=== PATIENT | male | born 2000 | race Caucasian/White ===

== ENCOUNTER 2024-10-02 15:38 | Outpatient (CLI) | payer OTHER, SELFPAY ==
[2024-10-02 15:59] LABS: Basophils Absolute Auto 0.1 K/mm3 (0.0-0.1); Basophils Percent Auto 1.4 % (0.2-1.2); Eosinophils Absolute Auto 0.4 K/mm3 (0-0.3); Eosinophils Percent Auto 4.5 % (0-4.4); Hematocrit 46.1 % (42.0-52.0); Hemoglobin 15.7 g/dL (14.0-18.0); Immature Granulocyte Absolute 0.03 K/mm3 (0.00-0.031); Immature Granulocyte Percent A 0.4 % (0-0.5); Lymphocytes Absolute Auto 2.17 K/mm3 (0.9-3.2); Lymphocytes Percent Auto 27.2 % (18.3-44.2); Mean Corpuscular HGB Conc 34.1 g/dl (32-36); Mean Corpuscular Hemoglobin 28.7 pg (26-34); Mean Corpuscular Volume 84.3 fl (80-100); Mean Platelet Volume 9.2 fl (7.4-10.4); Monocytes Absolute Auto 0.6 K/mm3 (0.1-0.6); Monocytes Percent Auto 7.1 % (2.6-8.5); Neutrophils Absolute Auto 4.8 K/mm3 (1.3-6.7); Neutrophils Percent Auto 59.4 % (45.5-73.1); Platelet Count Result 233 k/mm3 (150-375); Red Blood Count 5.47 M/mm3 (4.6-6.20); Red Cell Distribution Width 12.6 % (11.5-14.5)
[2024-10-02 16:12] LABS: Alanine Aminotransferase 74 U/L (6-50); Alkaline Phosphatase 120 U/L (38-126); Anion Gap 13 mmol/L (4-12); Aspartate Amino Transferase 43 U/L (17-59); Bilirubin,Total 0.5 mg/dL (0.2-1.3); Blood Urea Nitrogen 14 mg/dL (9-20); Calcium 9.6 mg/dL (8.4-10.2); Carbon Dioxide 23 mmol/L (22-30); Chloride 104 mmol/L (98-107); Estimated Glomerular Filt Rate > 60; Glucose 101 mg/dL (65-110); Sodium 140 mmol/L (137-145)
--- OUTSIDE RECORDS SUMMARY | 2024-10-02 17:04 | XMS_ITS | Clinical Summary ---
Author Organization [facility] [employer] Address [address] [place] [address] Care Team Providers Care Slp Teacher Name Role Phone Cadence Fitzgerald MD Primary Care Provider Source Comments [facility] [employer],non-owned Affiliates and Associated Physician Practices is amultiple site organization consisting of ambulatory clinics and hospital sitesin [place], [place], [place] and [place]. This disclosure is being madepursuant to the Care Everywhere program and may not contain all information available regarding this patient. Last updated 18.[facility] Allergies No known active allergies Medications Be aware that medications may not be up to date on this document. Always verify current medications with the patient. No known medications Family History Relation Name Status Comments Father Alive Mother Alive Social History Tobacco Use Types Packs/Day Years Used Date Smoking Tobacco: Never Smokeless Tobacco: Never Sex and Gender Information Value Date Recorded Sex Assigned at Not on file Gender Identity Not on file Sexual Orientation Not on file Last Filed Vital Signs Vital Sign Reading Time Taken Comments Blood Pressure 136/88 07/11/2017 11:32 AM FUNERAL CAR CHAUFFEUR Pulse 77 07/11/2017 11:32 AM FUNERAL CAR CHAUFFEUR Temperature 36.7 C (98 F) 07/11/2017 11:32 AM FUNERAL CAR CHAUFFEUR Respiratory Rate 16 07/11/2017 11:32 AM FUNERAL CAR CHAUFFEUR Oxygen Saturation 99% 07/11/2017 11:32 AM FUNERAL CAR CHAUFFEUR Inhaled Oxygen Concentration - - Weight 55.8 kg (123 lb) 07/11/2017 11:32 AM FUNERAL CAR CHAUFFEUR Height 165.1 cm (5' 5 ) 07/11/2017 11:32 AM FUNERAL CAR CHAUFFEUR Body Mass Index 20.47 07/11/2017 11:32 AM FUNERAL CAR CHAUFFEUR Plan of Treatment Health Maintenance Due Date Last Done Comments HIV SCREENING 2013 HPV VACCINE (1 - Male 3-dose series) 2013 HEPATITIS C SCREENING 11/13/2016 DTAP/TDAP/TD VACCINES (1 - Tdap) 2017 HEPATITIS B VACCINE (1 of 3 - 19+ 3-dose series) 2017 COVID-19 VACCINE (1 - 2023-2 5 season) 2024 INFLUENZA VACCINE (#1) 2024 DEPRESSION SCREENING 07/04/2024 ZOSTER VACCINE (1 of 2) 2048 HIB VACCINE Aged Out No longer eligi ble based on patient's age to complete this topic MENINGOCOCCAL (Group B) VACC INE SHARED DECISION-MAKING Aged Out No longer eligibl e based on patient's age to complete this topic MENINGOCOCCAL GROUPS A/C/Y/W VACCINE Aged Out No longer eligible b ased on patient's age to complete this topic PNEUMOCOCCAL VACCINE Aged Out No long er eligible based on patient's age to complete this topic Care Teams Slp Teacher Relationship Specialty Start Date End Date Cadence Fitzgerald MD [address] [place] [address] [address] [place] [address] PCP - General Pediatrics 07/11/17
== END 2024-10-02 15:39 | disposition home or self-care (01) ==
LOC: ANHLAB 15:39
PROVIDERS: PCP Family Medicine; Visit Provider Family Medicine
DX: R19.5 Other fecal abnormalities (principal); R19.7 Diarrhea, unspecified; K21.9 Gastro-esophageal reflux disease without esophagitis; F41.8 Other specified anxiety disorders
CPT/HCPCS: 36415; 80053; 84443; 85025

== ENCOUNTER 2024-10-24 00:55 | Day surgery (SDC) | payer OTHER, SELFPAY ==
[2024-10-12 11:51] VITALS: BMI 30.4
--- NOTE | 2024-10-23 14:46 | P.PNAN_ITS ---
Anes - Initial Pre Proc Eval Procedure: Operation Date: 10/24/24 14:00 Proposed Procedures p Esophagogastroduodenoscopy & Colonoscopy - Naun Stovall MD Date/Time: 10/23/24 14:46 Surgeon: Naun Stovall MD Pre Op Diagnosis: Other fecal abnormalities Patient Data Age: 23 Gender: M Height: 1.73 m Weight: 90.9 kg Allergies Allergy/AdvReac Type Severity Reaction Status Date / Time No Known Allergies Allergy Mild Verified 10/24/24 13:09 Home Medications ?Medication ?Instructions ?Recorded ?Confirmed ?Type sertraline 50 mg tablet 50 mg PO DAILY #30 tabs 07/17/24 10/12/24 Rx pantoprazole 40 mg tablet,delayed 40 mg PO QAM #30 tabs 10/02/24 10/12/24 Rx release Patient hx anesthesia problems: none Family hx anesthesia problems: none Results Review: All pre-operative results and documents have been reviewed as part of the pre- operative evaluation. [facility] Past Medical History Medical History (Updated 10/23/24 @ 14:46 by Ollie Fisher DO) Asthma Elevated ALT measurement GERD (gastroesophageal reflux disease) BMI 26.0-26.9,adult BMI 23.0-23.9, adult Family History Family History Mother Lupus Sibling No problems noted. Father Depression Social History Social History Smoking status: Never smoker Second hand tobacco smoke exposure: No Alcohol intake: former Drinks per week: 5 Alcohol use details: 2 per month currently Substance use: never Substance use type: marijuana Last use: 2023 Do You Feel Safe in your Home?: Yes Lack of Transportation: No Lack of Food: Never True Current Housing: I Have Housing Concerned About Future Housing: No Difficulty Paying Gas/Electric Bills: No Difficulty Paying for Meds: No Currently Unemployed: No Education: Trade/Vocational Certificate Difficulty w/ Childcare or Family Care: No Living arrangements: with friend(s) Occupation/Education: occupation Additional occupation/education comments: [employer]. Currently enrolled at [employer]. Gender identity (if verbalized by the patient): Male Spiritual care concerns: No Anes - Eval Final PreProcedure Day of Procedure 10/23/24 14:46 Patient weight: obese Heart: regular rate and rhythm Lungs: clear to auscultation Airway: Mallampati scale class II Neurological: alert and oriented Last oral intake: >/= 8 hours ASA classification: II Emergent: no Anesthetic plan: proceed Anesthesia type and monitoring: general GIVS and standard monitoring Results Review: All pre-operative results and documents have been reviewed as part of the pre- operative evaluation. Informed Consent: The patient's anesthetic plan and its attendant risks and benefits were discussed with the patient/family/POA. Questions were solicited and answers provided to the satisfaction of the patient/family/POA.
--- OUTSIDE RECORDS SUMMARY | 2024-10-24 00:58 | XMS_ITS | Clinical Summary ---
Author Organization [facility] [employer] Address [address] [place] [address] Care Team Providers Care Cotton Feeder Name Role Phone Cadence Fitzgerald MD Primary Care Provider [phone] Source Comments [facility] [employer],non-owned Affiliates and Associated Physician Practices is amultiple site organization consisting of ambulatory clinics and hospital sitesin [place], [place], [place] and [place]. This disclosure is being madepursuant to the Care Everywhere program and may not contain all information available regarding this patient. Last updated 18.[facility] [employer] Allergies No known active allergies Medications * Be aware that medications may not be up to date on this document. Alwaysverify current medications with the patient. 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 Gender Identity Not on file Sexual Orientation Not on file Last Filed Vital Signs Vital Sign Reading Time Taken Comments Blood Pressure 136/88 07/11/2017 11:32 AM HVAC R INSTRUCTOR Pulse 77 07/11/2017 11:32 AM HVAC R INSTRUCTOR Temperature 36.7 C (98 F) 07/11/2017 11:32 AM HVAC R INSTRUCTOR Respiratory Rate 16 07/11/2017 11:32 AM HVAC R INSTRUCTOR Oxygen Saturation 99% 07/11/2017 11:32 AM HVAC R INSTRUCTOR Inhaled Oxygen Concentration - - Weight 55.8 kg (123 lb) 07/11/2017 11:32 AM HVAC R INSTRUCTOR Height 165.1 cm (5' 5 ) 07/11/2017 11:32 AM HVAC R INSTRUCTOR Body Mass Index 20.47 07/11/2017 11:32 AM HVAC R INSTRUCTOR Plan of Treatment Health Maintenance Due Date Last Done Comments HIV SCREENING 2013 HPV VACCINE (1 - Male 3-dose series) 2013 HEPATITIS C SCREENING 11/13/2016 DTAP/TDAP/TD VACCINES (1 - Tdap) 2017 HEPATITIS B VACCINE (1 of 3 - 19+ 3-dose series) 2017 COVID-19 VACCINE (1 - 2023-2 5 season) 2024 DEPRESSION SCREENING 07/04/2024 INFLUENZA VACCINE (Season Ended) 2025 ZOSTER VACCINE (1 of 2) 2048 HIB [...] on patient's age to complete this topic Insurance Care Teams Cotton Feeder Relationship Specialty Start Date End Date Cadence Fitzgerald MD [address] [place] [address] PCP - General Pediatrics 07/11/17
[2024-10-24 13:12] VITALS: BP 119/82; PULSE 78; RESP 16; TEMP 36.7; O2SAT 98
[2024-10-24] MEDS: LACTATED RINGERS 1,000 ML 150 ML IV CONT (13:28)
--- NOTE | 2024-10-24 13:49 | PM.IMHP ---
H&P: HPI History of Present Illness Date/Time: 10/24/24 13:49 Chief Complaint: Change in stool caliber- diffuse abdominal discomfort Narrative: this patient is referred by his primary care physician due to the finding of very thin stools, which the patient confuses with a worm. In addition, the patient complains of intermittent, vague nonspecific diffuse abdominal discomfort. He is referred for EGD and colonoscopy. Review of Systems Review of Systems: All systems reviewed & are unremarkable except as noted in HPI and below [facility] Past Medical History Medical History (Updated 10/23/24 @ 14:46 by Ollie Fisher, ) Asthma Elevated ALT measurement GERD (gastroesophageal reflux disease) BMI 26.0-26.9,adult BMI 23.0-23.9, adult Family History Family History Mother Lupus Sibling No problems noted. Father Depression Social History Social History Smoking status: Never smoker Second hand tobacco smoke exposure: No Alcohol intake: former Drinks per week: 5 Alcohol use details: 2 per month currently Substance use: never Substance use type: marijuana Last use: 2023 Do You Feel Safe in your Home?: Yes Lack of Transportation: No Lack of Food: Never True Current Housing: I Have Housing Concerned About Future Housing: No Difficulty Paying Gas/Electric Bills: No Difficulty Paying for Meds: No Currently Unemployed: No Education: Trade/Vocational Certificate Difficulty w/ Childcare or Family Care: No Living arrangements: with friend(s) Occupation/Education: occupation Additional occupation/education comments: [employer]. Currently enrolled at [employer]. Gender identity (if verbalized by the patient): Male Spiritual care concerns: No Meds Home Medications and Allergies Home Medications ?Medication ?Instructions ?Recorded ?Confirmed ?Type sertraline 50 mg tablet 50 mg PO DAILY #30 tabs 07/17/24 10/24/24 Rx pantoprazole 40 mg tablet,delayed 40 mg PO QAM #30 tabs 10/02/24 10/24/24 Rx release Allergies Allergy/AdvReac Type Severity Reaction Status Date / Time No Known Allergies Allergy Mild Verified 10/24/24 13:09 Vital Signs Vital Signs - 24 hr 10/24/24 13:12 Temperature 98.0 F Pulse Rate 78 Respiratory Rate 16 Blood Pressure 119/82 Pulse Oximetry 98 Oxygen Delivery Room Air Exam Const: General: cooperative and healthy appearing Resp: Effort & Inspection: normal respiratory effort and able to speak in complete sentences Auscultation: clear to auscultation bilaterally Cardio: Rate: regular rate Rhythm: regular rhythm GI: Inspection: normal to inspection GI Palp: No No hepatosplenomegaly present Auscultation: normal bowel sounds Rectal Exam: deferred Skin: General skin exam: normal color Psych: Appearance: grossly normal Mental Status: mental status grossly normal Assessment and Plan Assessment and plan (1) Abnormal stool caliber: Code(s): R19.5 - Other fecal abnormalities Status: Acute Assessment and Plan: The patient is deemed a good candidate for the procedures. Consent signed. Will proceed.
[2024-10-24] MEDS: BENZOCAINE (*SP) 60 ML SPRAY CAN (HURRICAINE) 1 SPRAY MUCOUS MEM (13:54)
--- NOTE | 2024-10-24 14:05 | SUR.OPER ---
EGD [id number]. Colonoscopy start time 1405.
[2024-10-24 14:17] VITALS: BP 99/63; PULSE 76; RESP 18; O2SAT 96
[2024-10-24 14:27] VITALS: BP 93/59; PULSE 74; RESP 25; O2SAT 97
[2024-10-24 14:37] VITALS: BP 106/79; PULSE 72; RESP 24; O2SAT 97
[2024-10-24 14:47] VITALS: BP 118/65; PULSE 81; RESP 21; O2SAT 97
== END 2024-10-24 15:09 | disposition home or self-care (01) ==
PROVIDERS: PCP Family Medicine; Referring Provider Family Medicine; Visit Provider Internal Medicine Gastroenterology
PROC: 0DJ08ZZ Inspection of Upper Intestinal Tract, Via Natural or Artificial Opening Endoscopic (ICD-10-PCS; CPT 45378; principal; 2024-10-24 14:00)
DX: K21.9 Gastro-esophageal reflux disease without esophagitis (principal); K31.89 Other diseases of stomach and duodenum; J45.909 Unspecified asthma, uncomplicated; F12.90 Cannabis use, unspecified, uncomplicated; E66.9 Obesity, unspecified; Z68.29 Body mass index [BMI] 29.0-29.9, adult; Z87.891 Personal history of nicotine dependence
CPT/HCPCS: 43239; 45378; 88305; J2003; J2704; J7120

== ENCOUNTER 2024-10-29 14:54 | Outpatient (CLI) | payer OTHER, SELFPAY ==
[2024-10-29 16:05] LABS: Alanine Aminotransferase 49 U/L (6-50); Albumin Level 4.8 g/dL (3.5-5.1); Alkaline Phosphatase 111 U/L (38-126); Aspartate Amino Transferase 38 U/L (17-59); Bilirubin,Total 0.5 mg/dL (0.2-1.3)
--- OUTSIDE RECORDS SUMMARY | 2024-10-29 17:05 | XMS_ITS | Clinical Summary ---
Author Organization [facility] [employer] Address [address] [place] [address] Care Team Providers Care Ambulatory Care Name Role Phone Cadence Fitzgerald MD Primary Care Provider [phone] Source Comments [facility],non-owned Affiliates and Associated Physician Practices is amultiple site organization consisting of ambulatory clinics and hospital sitesin [place], [place], [place] and [place]. This disclosure is being madepursuant to the Care Everywhere program and may not contain all information available regarding this patient. Last updated 18.[facility] Allergies No known active allergies Medications * [...] on file Legal Sex Male 12:40 PM ECONOMICS ANALYST Gender Identity Not on file Sexual Orientation Not on file Last Filed Vital Signs Vital Sign Reading Time Taken Comments Blood Pressure 136/88 07/11/2017 11:32 AM ECONOMICS ANALYST Pulse 77 07/11/2017 11:32 AM ECONOMICS ANALYST Temperature 36.7 C (98 F) 07/11/2017 11:32 AM ECONOMICS ANALYST Respiratory Rate 16 07/11/2017 11:32 AM ECONOMICS ANALYST Oxygen Saturation 99% 07/11/2017 11:32 AM ECONOMICS ANALYST Inhaled Oxygen Concentration - - Weight 55.8 kg (123 lb) 07/11/2017 11:32 AM ECONOMICS ANALYST Height 165.1 cm (5' 5 ) 07/11/2017 11:32 AM ECONOMICS ANALYST Body Mass Index 20.47 07/11/2017 11:32 AM ECONOMICS ANALYST Plan of Treatment Health Maintenance Due Date [...] to complete this topic Insurance Care Teams Ambulatory Care Relationship Specialty Start Date End Date Cadence Fitzgerald MD [address] [facility] [address] [place] [address] PCP - General Pediatrics 07/11/17
== END 2024-10-29 14:55 | disposition home or self-care (01) ==
LOC: ANHLAB 14:56
PROVIDERS: PCP Family Medicine; Visit Provider Nurse Practitioner Adult Health
DX: R74.01 Elevation of levels of liver transaminase levels (principal)
CPT/HCPCS: 36415; 80076

== ENCOUNTER 2024-12-17 11:14 | Outpatient (CLI) | payer BC, SELFPAY ==
--- NOTE | ~2024-12-17 | US_ITS ---
COMPLETE ABDOMINAL ULTRASOUND Ordering provider: TREVON Sánchez History: . R10.13 - Epigastric pain . Comparison: None. FINDINGS: LIVER: Normal size and echotexture. No focal hepatic lesions or perihepatic fluid collections are angelique ntified. GALLBLADDER: Unremarkable. No evidence for stones, sludge, gallbladder wall thickening or pericholecy stic fluid collections. A negative sonographic Claros's sign was noted. BILIARY DUCTS: No evidence for intra or extrahepatic biliary dilation. Common bile duct measures 3 mm in diameter which is within normal limits. PANCREAS: Normal echotexture and size of the visualized portion. SPLEEN: Normal size, echotexture and contour and measures 12.4 cm in length. KIDNEYS: Right measures 11.9x 4.9x 4.8 cm in length and the left 9.6x 4.1x 1.6 cm in length. There is no evidence for hydronephrosis, solid renal mass, renal calculi or perinephric fluid collections. No renal cysts. UPPER ABDOMINAL AORTA: Normal in caliber. IVC: Patent. FREE FLUID: None. IMPRESSION: 1. Unremarkable complete ultrasound of the abdomen. Reviewed, dictated and finalized at location A.
== END 2024-12-17 11:15 | disposition home or self-care (01) ==
LOC: GOSHIMG 11:15
PROVIDERS: PCP Nurse Practitioner Family; Visit Provider Nurse Practitioner Family
DX: R10.13 Epigastric pain (principal); R11.2 Nausea with vomiting, unspecified
CPT/HCPCS: 76700

== ENCOUNTER 2025-06-24 13:51 | Emergency (ER) | payer BC, SELFPAY ==
[2025-06-24 14:07] VITALS: BP 137/77; PULSE 82; RESP 16; TEMP 36.6; O2SAT 100
--- NOTE | 2025-06-24 14:48 | ED_ITS ---
HPI - URI/Sore Throat General Chief Complaint: Upper Respiratory Infection Stated Complaint: Flu Symptoms Time Seen by Provider: 06/24/25 14:49 Source: patient and RN notes reviewed Mode of arrival: ambulatory Limitations: no limitations History of Present Illness HPI Narrative: 24-year-old male presents with concern for cough, congestion, shortness of breath with exertion, body aches, nasal congestion, stomach ache that started yesterday. He reports taking Tylenol. MD elicited complaint: cough and sore throat Related Data Allergies Allergy/AdvReac Type Severity Reaction Status Date / Time No Known Allergies Allergy Mild Verified 06/24/25 14:07 Review of Systems Review of Systems: CONSTITUTIONAL: Denies malaise, chills, sweats, or fever. EYES: Denies visual changes, redness, or discharge. ENT: Reports rhinorrhea, congestion, and sore throat. CARDIOVASCULAR: Denies chest pain, palpitations, or edema. RESPIRATORY: Reports cough and chest congestion. Denies dyspnea. GASTROINTESTINAL: Denies abdominal pain, nausea, vomiting, diarrhea. Reports stomach ache and nausea SKIN: Denies rash or itching. MUSCULOSKELETAL: Reports myalgia. NEUROLOGIC: Reports headache. All systems reviewed & are unremarkable except as noted in HPI and below PMFSH Past Medical History Medical History Alternating constipation and diarrhea Nausea and vomiting Epigastric pain Asthma Elevated ALT measurement GERD (gastroesophageal reflux disease) BMI 26.0-26.9,adult BMI 23.0-23.9, adult Family History Family History Mother Lupus Sibling No problems noted. Father Depression Social History Social History Smoking status: Never smoker Second hand tobacco smoke exposure: No Alcohol intake: former Drinks per week: 5 Alcohol use details: 2 per month currently Substance use: never Substance use type: marijuana Last use: 2023 Lack of Transportation: No Lack of Food: Never True Current Housing: I Have Housing Concerned About Future Housing: No Difficulty Paying Gas/Electric Bills: No Difficulty Paying for Meds: No Currently Unemployed: No Education: Trade/Vocational Certificate Difficulty w/ Childcare or Family Care: No Living arrangements: with friend(s) Occupation/Education: occupation Additional occupation/education comments: [employer]. Currently enrolled at [employer]. Gender identity (if verbalized by the patient): Male Spiritual care concerns: No Comments At time of signature, agree with nursing past medical, surgical, social and family history. There is no relevant family history pertinent to the presenting complaint Exam Narrative: GENERAL: Well-appearing, well-nourished, and in no acute distress. HEAD: Normocephalic EYES: PERRLA, conjunctivae clear ENT: Nares clear. Mucous membranes moist. TM pearly tucker with dull light reflex bilaterally; no tragal tenderness. Oropharynx not erythematous without lesions. Tonsils not enlarged and without exudate, no drooling, no hoarseness, no trismus, uvula midline. NECK: Supple. No lymphadenopathy CHEST: Clear to auscultation, breath sounds equal. No wheezing, rhonchi, rales, or stridor. No respiratory distress, speaks in full sentences. HEART: Regular rate and rhythm. No murmur heard. SKIN: Warm, dry, no rash. NEURO: Alert and oriented x3. PSYCH: Normal mood and affect Course Course Emergency Course: Patient is aware of diagnosis, understands and agrees to treatment plan. Anticipatory guidance given. Patient agrees to follow-up as directed and is aware of reasons to seek care at the emergency department. Portions of this record may have been created with voice recognition software Level of Care: [facility] Visit Vital Signs Vital signs: Vital Signs Temperature 97.9 F 06/24/25 14:07 Pulse Rate 82 06/24/25 14:07 Respiratory Rate 16 06/24/25 14:07 Blood Pressure 137/77 06/24/25 14:07 Pulse Oximetry 100 06/24/25 14:07 Temperature 97.9 F 06/24/25 14:07 Pulse Rate 82 06/24/25 14:07 Respiratory Rate 16 06/24/25 14:07 Blood Pressure 137/77 06/24/25 14:07 Pulse Oximetry 100 06/24/25 14:07 MDM Differential Diagnosis Differential Diagnosis: I evaluated this patient in the [facility] care. History is obtained from patient who is an independent historian and physical exam was performed.? Available medical records were reviewed. ? Exam findings and relevant testing show no acute concerns or changes; patient is non-toxic appearing and is in no distress. ? Differential diagnosis considered: Kennedy virus, strep pharyngitis, allergic rhinitis, upper respiratory tract infection, sinusitis, rhinosinusitis, nasopharyngitis. viral pharyngitis, otitis media, otitis externa, pneumonia, bronchitis, viral cough syndrome, viral syndrome, and influenza. Differential diagnosis and treatment plan were discussed with the patient. Patient agrees with discussion and after shared medical decision making agrees with plan of care. All questions were answered to the patient's satisfaction. Patient is appropriate for outpatient treatment and follow-up. Discharge Plan Discharge Clinical Impression: Viral infection Patient Disposition: Home Condition: Stable Instructions: Viral Syndrome (ED) Additional Instructions: -Take strict precautions to prevent the spread of your virus. Be diligent about covering your cough (even when you are alone) and washing your hands frequently. -You may contagious until you have been symptom and/or fever free for 24 hours without fever reducing medicine -Alternate Ibuprofen and Tylenol for pain and fever relief (per package directions) -take medications as prescribed for nausea -Drink plenty of fluid - drink fluid with electrolytes such as Gatorade or other oral re-hydration solution. Avoid caffeine, which can make dehydration worse. -Get plenty of rest to help your body heal. -Use a cool mist humidifier for chest and nasal congestion. -Eat RAW honey or use cough drops to ease throat discomfort -Do not smoke or expose children to secondhand smoke -Wash your hands frequently. -Please follow-up with your primary care doctor in the next 1-2 days if your symptoms do not improve. -If you have any worsening of symptoms or any other concerns please go to the ED immediately. -Please take medications as prescribed and continue taking your home medications as usual. Patient Language: Northern Irish Prescriptions: New ondansetron 4 mg tablet,disintegrating 4 mg PO Q8H PRN (Reason: nausea and vomiting) Qty: 10 0RF famotidine [Pepcid] 40 mg tablet 40 mg PO DAILY Qty: 14 0RF No Action sertraline 50 mg tablet See Rx Instructions .ROUTE .COMPLEX Qty: 30 0RF Dose Instruction: TAKE 1 TABLET BY MOUTH EVERY DAY Rx Instructions: TAKE 1 TABLET BY MOUTH EVERY DAY Follow-up/Referrals: Evangelist Milton MD [Primary Care Provider, Family Practice] Stand Alone Forms: Work/School Release IP Time of Disposition: 14:56
[2025-06-24 14:54] LABS: EDCOVIDSCREEN Negative (Negative); EDINFLUASCREEN Negative (Negative); EDINFLUBSCREEN Negative (Negative)
== END 2025-06-24 15:06 | disposition home or self-care (01) ==
PROVIDERS: Emergency Provider Nurse Practitioner; PCP Family Medicine
DX: B34.9 Viral infection, unspecified (principal); Z20.822 Contact with and (suspected) exposure to COVID-19; J45.909 Unspecified asthma, uncomplicated; K21.9 Gastro-esophageal reflux disease without esophagitis
CPT/HCPCS: 87426; 87804; 99213; G0463